=== PATIENT | male | born 1995 | race Caucasian/White ===

== ENCOUNTER 2020-08-09 12:55 | Outpatient (CLI) | payer BC, SELFPAY ==
[2020-08-11 22:23] LABS: SARS-CoV-2 RNA PCR Positive
== END 2020-08-09 12:56 | disposition home or self-care (01) ==
PROVIDERS: PCP Nurse Practitioner Family; Visit Provider Nurse Practitioner Family
DX: U07.1 COVID-19 (principal)
CPT/HCPCS: 87635; C9803; U0003